=== PATIENT | female | born 1960 | race Hispanic/Latino ===

== ENCOUNTER 2016-12-10 18:44 | Emergency (ER) | payer OTHER ==
[~2016-12-10] VITALS: Ht 160 cm; Wt 39.0 kg
[2016-12-10] MEDS ORDERED: TRAVEL SICKNESS25 MG PO (19:23)
[2016-12-10] MEDS ORDERED: MULTIVITAMINS1 EAC9 PO (19:24)
[2016-12-10] MEDS ORDERED: FOLIC ACID1 M1 PO (19:24)
[2016-12-10] MEDS ORDERED: CITALOPRAM HBR40 MG PO (19:25)
[2016-12-10] MEDS ORDERED: ZOLPIDEM TARTRA10 M1 PO (19:26)
[2016-12-10] MEDS ORDERED: SIMVASTATIN20 M2 PO (19:26)
[2016-12-10] MEDS ORDERED: SENNA-S TABLET1 EACH PO (19:27)
[2016-12-10] MEDS ORDERED: SYNTHROID300 MCG PO (19:27)
[2016-12-10] MEDS ORDERED: OXYCODONE-ACET1 EAC1 PO (19:28)
[2016-12-10] MEDS ORDERED: ASPIRIN EC81 M1 PO (19:29)
[2016-12-10] MEDS ORDERED: OXYCODONE HCL15 M1 (19:30)
[2016-12-10] MEDS ORDERED: MORPHINE S20 MG/5 ML (19:31)
--- NOTE | 2016-12-10 19:36 | ED GENERAL ADULT ---
History of Present Illness General Chief Complaint: General Adult Stated Complaint: CLOGGED PEG TUBE Source: family, EMS Exam Limitations: clinical condition Vital Signs & Intake/Output Vital Signs & Intake/Output Vital Signs Date Time Temp Pulse Resp B/P Pulse O2 O2 Flow FiO2 Ox Delivery Rate 12/10 1903 Trach Mask 12/10 1856 99.3 102 16 105/68 99 Room Air Allergies Coded Allergies: No Known Allergies (12/10/16) Reconcile Medications Aspirin (Ecotrin*) 81 MG TABLET.DR 1 TAB PO DAILY HEART/BLOOD (Reported) Citalopram Hydrobromide (Citalopram HBr) 40 MG TABLET 1 TAB PO DAILY MENTAL HEALTH (Reported) Folic Acid 1 MG TABLET 1 TAB PO DAILY SUPPLEMENT (Reported) Levothyroxine Sodium (Synthroid) 300 MCG TABLET 1 TAB PO DAILY THYROID ( Reported) Meclizine HCl (Travel Sickness) 25 MG TAB.CHEW 1 TAB PO TID VERTIGO (Reported ) Morphine Sulfate (Unknown Strength) SOLUTION (Unknown Dose) UNKNOWN (Reported ) Multiple Vitamin (Multivitamins) 1 EACH TABLET 1 TAB PO DAILY SUPPLEMENT ( Reported) Oxycodone HCl (Unknown Strength) TABLET (Unknown Dose) UNKNOWN (Reported) Oxycodone HCl/Acetaminophen (Oxycodone-Acetaminophen 10-325) 10 MG-325 MG TABLET 1 TAB PO 4XDAILY PAIN (Reported) Sennosides/Docusate Sodium (Senna-S Tablet) 8.6 MG-50 MG TABLET 1 TAB PO PRN CONSTIPATION (Reported) Simvastatin (Simvastatin*) 20 MG TABLET 1 TAB PO QPM CHOLESTEROL (Reported) Zolpidem Tartrate 10 MG TABLET 1 TAB PO QPM SLEEP (Reported) Triage Note: PT TO ROOM7 BIB FROM HOME FOR C/O CLOGGED PEG TUBE. PEG TUBE WAS WORKING LAST TIME AROUND 3PM. PT OFFERS NO COMPLAINTS AT THIS TIME. VSS. HX OF THROAT CA WITH METASTASIS. Triage Nurses Notes Reviewed? yes HPI: Patient has throat cancer and has a PEG tube. Patient is here visiting her daughter. Tonight the PEG tube became clogged. Daughter brought her patient in for evaluation. Patient has no other complaints. There are no fevers or chills. Past History Travel History Traveled to [place] past 21 day No Medical History Any Pertinent Medical History? see below for history Gastrointestinal: PEG TUBE Endocrine: hypothyroidism Cancer(s): THROAT CA W/METS Surgical History Surgical History: PEG, TRACH Psychosocial History What is your primary language Croatian Tobacco Use: Never used ETOH Use: denies use Illicit Drug Use: denies illicit drug use Family History Hx Contributory? No Review of Systems Review of Systems Constitutional: Reports: no symptoms. Respiratory: Reports: no symptoms. Cardiovascular: Reports: no symptoms. GI: Reports: see HPI. Neurological/Psychological: Reports: no symptoms. Physical Exam Physical Exam General Appearance: well developed/nourished, awake Eyes: Bilateral: PERRL, EOMI. Respiratory: normal breath sounds, chest non-tender, no respiratory distress, lungs clear Gastrointestinal: normal bowel sounds, soft, non-tender Skin: intact, normal color, warm/dry Core Measures ACS in differential dx? No CVA/TIA Diagnosis: No Severe Sepsis Present: No Septic Shock Present: No Progress Differential Diagnoses I considered the following diagnoses in my evaluation of the patient: [CLOGGED PEG TUBE] Plan of Care: DECLOG Initial ED EKG: none Comments: PEG tube declogged in the ER. Departure Departure Disposition: HOME OR SELF CARE Condition: Stable Clinical Impression Primary Impression: Feeding tube blocked Referrals: UNKNOWN (PCP/Family) Additional Instructions: FOLLOW UP WITH HER DOCTOR IN [place] RETURN IF SYMPTOMS WORSEN OR FOR ANY CONCERNS Departure Forms: Customer Survey General Discharge Information Critical Care Note Critical Care Note Critical Care Time: non-applicable
[2016-12-10 20:24] VITALS: BP 110/66
== END 2016-12-10 20:25 ==
LOC: ERH 18:44
DX: K94.29 Other complications of gastrostomy (principal)

== ENCOUNTER 2017-01-14 21:28 | Emergency (ER) | payer OTHER ==
[~2017-01-14] VITALS: Ht 162.6 cm; Wt 34.5 kg
[~2017-01-14 21:28] MED LIST: ASPIRIN EC81 M1 PO; CITALOPRAM HBR40 MG PO; FOLIC ACID1 M1 PO; MORPHINE S20 MG/5 ML; MULTIVITAMINS1 EAC9 PO; OXYCODONE HCL15 M1; OXYCODONE-ACET1 EAC1 PO; SENNA-S TABLET1 EACH PO; SIMVASTATIN20 M2 PO; SYNTHROID300 MCG PO; TRAVEL SICKNESS25 MG PO; ZOLPIDEM TARTRA10 M1 PO
[2017-01-14 21:30] VITALS: BP 78/53
--- NOTE | 2017-01-14 21:51 | ED GI/GU/ABDOMINAL COMPLAINT ---
History of Present Illness General Chief Complaint: General Adult Stated Complaint: CONSTIPATION Source: patient, family Exam Limitations: no limitations Vital Signs & Intake/Output Vital Signs & Intake/Output Vital Signs Date Time Temp Pulse Resp B/P Pulse O2 O2 Flow FiO2 Ox Delivery Rate 01/140 98.8 130 22 78/53 82 Room Air Allergies Coded Allergies: No Known Allergies (12/10/16) Reconcile Medications Aspirin (Ecotrin*) 81 MG TABLET.DR 1 TAB PO DAILY HEART/BLOOD (Reported) Citalopram Hydrobromide (Citalopram HBr) 40 MG TABLET 1 TAB PO DAILY MENTAL HEALTH (Reported) Folic Acid 1 MG TABLET 1 TAB PO DAILY SUPPLEMENT (Reported) Levothyroxine Sodium (Synthroid) 300 MCG TABLET 1 TAB PO DAILY THYROID ( Reported) Meclizine HCl (Travel Sickness) 25 MG TAB.CHEW 1 TAB PO TID VERTIGO (Reported ) Morphine Sulfate (Unknown Strength) SOLUTION (Unknown Dose) UNKNOWN (Reported ) Multiple Vitamin (Multivitamins) 1 EACH TABLET 1 TAB PO DAILY SUPPLEMENT ( Reported) Oxycodone HCl (Unknown Strength) TABLET (Unknown Dose) UNKNOWN (Reported) Oxycodone HCl/Acetaminophen (Oxycodone-Acetaminophen 10-325) 10 MG-325 MG TABLET 1 TAB PO 4XDAILY PAIN (Reported) Polyethylene Glycol 3350 (Miralax) 17 GRAM/DOSE POWDER 17 GM PO BID PRN CONSTIPATION mix with water, juice, soda, coffee or tea Sennosides/Docusate Sodium (Senna-S Tablet) 8.6 MG-50 MG TABLET 1 TAB PO PRN CONSTIPATION (Reported) Simvastatin (Simvastatin*) 20 MG TABLET 1 TAB PO QPM CHOLESTEROL (Reported) Zolpidem Tartrate 10 MG TABLET 1 TAB PO QPM SLEEP (Reported) Triage Note: 56 YEAR OLD FEMALE WITH HISTORY OF THROAT CANCER THAT SPREAD EVERY WHERE PER DAUGHTER, PT IS NON VERBAL AND WRITES WHAT SHE NEEDS. PT HAS PEG TUBE AND HAD A TRACHE THAT WAS REMOVED, PT IS O2 DEPENDENT AND ARRIVED ON RA , O2 SAT 82 %. PT COMES TO ER FOR CONSTIPATION, PTS PMD IS IN THE [place], PT STILL GOES FOR TREATMENTS. PER DAUGHTER DOCTORS WANT HER TO GO TO HOSPICE BUT PT DOES NOT WANT TO. Triage Nurses Notes Reviewed? yes ? n Is pt currently ? No Onset: Gradual Duration: week(s):, waxing and waning Timing: recent history Quality/Severity: cramping Location: generalized abdomen Radiation: no radiation Prior Abdominal Problems: similar symptoms Modifying Factors: Worsens With: defecating. 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 Family states that she has had difficulty moving her bowels for the past several weeks. "Small balls of stool, out, "says her daughter. This evening, the patient pulled several balls of stool out by herself. She comes this evening with rectal pressure and difficulty stooling. She has no nausea vomiting fever chills dysuria chest pain or shortness of breath. She is otherwise well. Past History Travel History Traveled to [place] past 21 day No Medical History Any Pertinent Medical History? 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 No Review of Systems Review of Systems Constitutional: Reports: no symptoms. EENTM: Reports: no symptoms. Respiratory: Reports: no symptoms. Cardiovascular: Reports: no symptoms. GI: Reports: no symptoms. Genitourinary: Reports: no symptoms. Musculoskeletal: Reports: no symptoms. Skin: Reports: no symptoms. Neurological/Psychological: Reports: no symptoms. Hematologic/Endocrine: Reports: no symptoms. Immunologic/Allergic: Reports: no symptoms. All Other Systems: Reviewed and Negative Physical Exam Physical Exam General Appearance: well developed/nourished, no apparent distress Head: atraumatic, normal appearance Eyes: Bilateral: normal appearance. Ears, Nose, Throat, Mouth: hearing grossly normal, ostomy intact Neck: normal inspection, supple, full range of motion Respiratory: normal breath sounds, chest non-tender, no respiratory distress, quiet respiration, lungs clear Cardiovascular: regular rate/rhythm Gastrointestinal: normal bowel sounds, soft, non-tender, no organomegaly Rectal: rectal vault filled with firm, dry stool Back: normal inspection, cachexia, poor subcutaneous fat Extremities: normal range of motion Neurologic/Psych: no motor/sensory deficits, awake, alert, oriented x 3 Skin: intact, normal color, warm/dry Core Measures ACS in differential dx? No Severe Sepsis Present: No Septic Shock Present: No Progress Differential Diagnosis: constipation vs other. Plan of Care: procedure: rectal disimpaction. extracted copious amount of stool from rectal vault... pt tolerated the procedure well. Initial ED EKG: none Departure Departure Disposition: HOME OR SELF CARE Condition: Stable Clinical Impression Primary Impression: Constipation Referrals: UNKNOWN (PCP/Family) Departure Forms: Customer Survey General Discharge Information Prescriptions: Current Visit Scripts Polyethylene Glycol 3350 (Miralax) 17 GM PO BID PRN CONSTIPATION #255 GM Ref 1 mix with water, juice, soda, coffee or tea Comments pt rectally disimpacted by ED MD... Abundant amount of firm stool extracted from rectum. Initial 02 sat was on room air... she is on 35% trach mask... when on 35% trach mask, she is at 99%. Discussed at length goals of care... Patient feels better after disimpaction. She and family feel comfortable going home. If not better, she will return to the ED. Wrote for miralax.
[2017-01-14] MEDS ORDERED: MIRALAX119 GM PO (22:02)
== END 2017-01-14 22:19 ==
LOC: ERH 21:28
DX: K59.00 Constipation, unspecified (principal)

== ENCOUNTER 2017-01-19 13:19 | Emergency (ER) | payer OTHER ==
[~2017-01-19] VITALS: Ht 160 cm; Wt 34.5 kg
[~2017-01-19 13:19] MED LIST changes: +MIRALAX119 GM PO
[2017-01-19 13:27] VITALS: BP 101/63
--- NOTE | 2017-01-19 13:28 | ED GI/GU/ABDOMINAL COMPLAINT ---
History of Present Illness General Chief Complaint: General Adult Stated Complaint: CLOGGED G-TUBE Vital Signs & Intake/Output Vital Signs & Intake/Output Vital Signs Date Time Temp Pulse Resp B/P Pulse O2 O2 Flow FiO2 Ox Delivery Rate 01/19 1354 97 Trach Mask 35% 01/19 1327 97.4 114 20 101/63 90 Room Air Allergies Coded Allergies: No Known Allergies (12/10/16) Reconcile Medications Aspirin (Ecotrin*) 81 MG TABLET.DR 1 TAB PO DAILY HEART/BLOOD (Reported) Citalopram Hydrobromide (Citalopram HBr) 40 MG TABLET 1 TAB PO DAILY MENTAL HEALTH (Reported) Folic Acid 1 MG TABLET 1 TAB PO DAILY SUPPLEMENT (Reported) Levothyroxine Sodium (Synthroid) 300 MCG TABLET 1 TAB PO DAILY THYROID ( Reported) Meclizine HCl (Travel Sickness) 25 MG TAB.CHEW 1 TAB PO TID VERTIGO (Reported ) Morphine Sulfate (Unknown Strength) SOLUTION (Unknown Dose) UNKNOWN (Reported ) Multiple Vitamin (Multivitamins) 1 EACH TABLET 1 TAB PO DAILY SUPPLEMENT ( Reported) Oxycodone HCl (Unknown Strength) TABLET (Unknown Dose) UNKNOWN (Reported) Oxycodone HCl/Acetaminophen (Oxycodone-Acetaminophen 10-325) 10 MG-325 MG TABLET 1 TAB PO 4XDAILY PAIN (Reported) Polyethylene Glycol 3350 (Miralax) 17 GRAM/DOSE POWDER 17 GM PO BID PRN CONSTIPATION mix with water, juice, soda, coffee or tea Sennosides/Docusate Sodium (Senna-S Tablet) 8.6 MG-50 MG TABLET 1 TAB PO PRN CONSTIPATION (Reported) Simvastatin (Simvastatin*) 20 MG TABLET 1 TAB PO QPM CHOLESTEROL (Reported) Zolpidem Tartrate 10 MG TABLET 1 TAB PO QPM SLEEP (Reported) Triage Note: PRESENTS TO ED FOR EVALUATION OF CLOGGED G-TUBE PER DAUGHTER. PT IS NON VERBAL. 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
--- NOTE | 2017-01-19 14:06 | ED GI/GU/ABDOMINAL COMPLAINT ---
History of Present Illness General Chief Complaint: General Adult Stated Complaint: CLOGGED G-TUBE Source: family, old records Exam Limitations: unable to give history, language barrier Vital Signs & Intake/Output Vital Signs & Intake/Output Vital Signs Date Time Temp Pulse Resp B/P Pulse O2 O2 Flow FiO2 Ox Delivery Rate 01/19 1354 97 Trach Mask 35% 01/19 1327 97.4 114 20 101/63 90 Room Air Allergies Coded Allergies: No Known Allergies (12/10/16) Reconcile Medications Aspirin (Ecotrin*) 81 MG TABLET.DR 1 TAB PO DAILY HEART/BLOOD (Reported) Citalopram Hydrobromide (Citalopram HBr) 40 MG TABLET 1 TAB PO DAILY MENTAL HEALTH (Reported) Folic Acid 1 MG TABLET 1 TAB PO DAILY SUPPLEMENT (Reported) Levothyroxine Sodium (Synthroid) 300 MCG TABLET 1 TAB PO DAILY THYROID ( Reported) Meclizine HCl (Travel Sickness) 25 MG TAB.CHEW 1 TAB PO TID VERTIGO (Reported ) Morphine Sulfate (Unknown Strength) SOLUTION (Unknown Dose) UNKNOWN (Reported ) Multiple Vitamin (Multivitamins) 1 EACH TABLET 1 TAB PO DAILY SUPPLEMENT ( Reported) Oxycodone HCl (Unknown Strength) TABLET (Unknown Dose) UNKNOWN (Reported) Oxycodone HCl/Acetaminophen (Oxycodone-Acetaminophen 10-325) 10 MG-325 MG TABLET 1 TAB PO 4XDAILY PAIN (Reported) Polyethylene Glycol 3350 (Miralax) 17 GRAM/DOSE POWDER 17 GM PO BID PRN CONSTIPATION mix with water, juice, soda, coffee or tea Sennosides/Docusate Sodium (Senna-S Tablet) 8.6 MG-50 MG TABLET 1 TAB PO PRN CONSTIPATION (Reported) Simvastatin (Simvastatin*) 20 MG TABLET 1 TAB PO QPM CHOLESTEROL (Reported) Zolpidem Tartrate 10 MG TABLET 1 TAB PO QPM SLEEP (Reported) Triage Note: PRESENTS TO ED FOR EVALUATION OF CLOGGED G-TUBE PER DAUGHTER. PT IS NON VERBAL. Triage Nurses Notes Reviewed? yes ? N Is pt currently ? No HPI: This is a 56-year-old female with past medical history significant for throat cancer with metastasis currently treated with unknown treatment regimen in [place]. Pt has history of trach which is now removed. However, patient is O2 dependent and nonverbal. She comes in with chief complaint of a PEG tube. Patient brought in by daughter who is bedside and provides the entire history. Per daughter, she thinks that patient's medications were in adequately crushed when they were administered this AM. After medication administration, she was unable to flush the tube adequately. Of note, on 12/10/2016, patient was seen for the same complaint. At that time PEG tube was successfully unclogged with the metal brush and syringe. (SARA WATT MD) Past History Travel History Traveled to [place] past 21 day No Medical History Any Pertinent Medical History? see below for history Neurological: NONE EENT: NONE Cardiovascular: NONE Respiratory: NONE Gastrointestinal: PEG TUBE Hepatic: NONE Renal: NONE Musculoskeletal: NONE Psychiatric: NONE Endocrine: hypothyroidism Blood Disorders: NONE Cancer(s): THROAT CA W/METS VP HUMAN RESOURCES/Reproductive: NONE Surgical History Surgical History: PEG, TRACH Psychosocial History What is your primary language Kyrgyz Tobacco Use: Quit >30 days ago Family History Hx Contributory? No (SARA WATT MD) Review of Systems Review of Systems Constitutional: Reports: no symptoms. Comments Pt. nonverbal but denies any pain (SARA WATT MD) Physical Exam Physical Exam General Appearance: alert, awake, comfortable, thin Head: atraumatic Eyes: Bilateral: normal appearance, PERRL, EOMI. Neck: abnormal alignment, evidence of previous trach. Respiratory: crackles Cardiovascular: regular rate/rhythm Gastrointestinal: soft, non-tender, Peg Tube in place. Extremities: normal range of motion Core Measures ACS in differential dx? No Severe Sepsis Present: No Septic Shock Present: No (SARA WATT MD) Physical Exam Ears, Nose, Throat, Mouth: hearing grossly normal Peripheral Pulses: 4+ carotid (R), 4+ carotid (L) Neurologic/Psych: awake, alert Skin: intact, normal color (JORDON MEJIA MD) Progress Differential Diagnosis: Clogged PEG tube Plan of Care: Recent comes in with a clogged PEG tube. Incidentally during workup, she was found to have saturations between low 70s and high 80s. Per daughter in the room her mom is usually on humidified oxygen via her previous trach access. Respiratory is on board. Issues: For similar chief complaint previously. At that time metal brush and syringes with 400 mL of fluid to flush the tube worked to unclog the tube. Will attempt same maneuver at this time. PEG tube successfully unclogged. Pt ready to go home. Initial ED EKG: none (SARA WATT MD) Departure Departure Disposition: HOME OR SELF CARE Condition: Stable Clinical Impression Primary Impression: PEG tube malfunction Referrals: UNKNOWN (PCP/Family) Departure Forms: Customer Survey General Discharge Information Comments Please crush all measurements prior to administration we are PEG tube. If tube stops working the return to ED. (SARA WATT MD) Resident Co-Sign Statement Statement: ED Attending supervision documentation- x I saw and evaluated the patient. I have also reviewed all the pertinent lab results and diagnostic results. I agree with the findings and the plan of care as documented in the Resident's documentation. [] I have reviewed the ED Record and agree with the Resident's documentation. [] Additions or exceptions (if any) to the Resident's note and plan are summarized below: [] (JACKIE MCLEOD,JORDON)
== END 2017-01-19 14:14 ==
LOC: ERH 13:19
DX: K94.23 Gastrostomy malfunction (principal)
CPT/HCPCS: 1342

== ENCOUNTER 2017-01-19 14:27 | Emergency (ER) | payer OTHER ==
[~2017-01-19] VITALS: Ht 170.2 cm; Wt 40.8 kg
[2017-01-19 14:31] VITALS: BP 80/52
--- NOTE | 2017-01-19 14:35 | ED GENERAL ADULT ---
History of Present Illness General Chief Complaint: Dyspnea (COPD, CHF, Other) Stated Complaint: SOB Source: patient, family, old records Exam Limitations: unable to give history, language barrier Vital Signs & Intake/Output Vital Signs & Intake/Output Vital Signs Date Time Temp Pulse Resp B/P Pulse O2 O2 Flow FiO2 Ox Delivery Rate 01/19 1449 99 Trach Mask 3.0L 01/19 1431 97.2 103 20 80/52 94 Room Air Allergies Coded Allergies: No Known Allergies (12/10/16) Reconcile Medications Aspirin (Ecotrin*) 81 MG TABLET.DR 1 TAB PO DAILY HEART/BLOOD (Reported) Citalopram Hydrobromide (Citalopram HBr) 40 MG TABLET 1 TAB PO DAILY MENTAL HEALTH (Reported) Folic Acid 1 MG TABLET 1 TAB PO DAILY SUPPLEMENT (Reported) Levothyroxine Sodium (Synthroid) 300 MCG TABLET 1 TAB PO DAILY THYROID ( Reported) Meclizine HCl (Travel Sickness) 25 MG TAB.CHEW 1 TAB PO TID VERTIGO (Reported ) Morphine Sulfate (Unknown Strength) SOLUTION (Unknown Dose) UNKNOWN (Reported ) Multiple Vitamin (Multivitamins) 1 EACH TABLET 1 TAB PO DAILY SUPPLEMENT ( Reported) Oxycodone HCl (Unknown Strength) TABLET (Unknown Dose) UNKNOWN (Reported) Oxycodone HCl/Acetaminophen (Oxycodone-Acetaminophen 10-325) 10 MG-325 MG TABLET 1 TAB PO 4XDAILY PAIN (Reported) Polyethylene Glycol 3350 (Miralax) 17 GRAM/DOSE POWDER 17 GM PO BID PRN CONSTIPATION mix with water, juice, soda, coffee or tea Sennosides/Docusate Sodium (Senna-S Tablet) 8.6 MG-50 MG TABLET 1 TAB PO PRN CONSTIPATION (Reported) Simvastatin (Simvastatin*) 20 MG TABLET 1 TAB PO QPM CHOLESTEROL (Reported) Zolpidem Tartrate 10 MG TABLET 1 TAB PO QPM SLEEP (Reported) HPI: This is a 6-year-old female past medical history of throat cancer with metastasis. Daughter is not sure of the current treatment regimen, however she seeks all her treatment in [place]. Patient is nonverbal at baseline and O2 dependent. She came in earlier this afternoon for chief complaint of a clogged PEG tube. The problem was resolved, and patient left. However she quickly returned secondary to shortness of breath. Of note, she is O2 dependent at home but daughter brought her in without oxygen tank or supplemental oxygen source. (SARA WATT MD) Triage Nurses Notes Reviewed? yes (JORDON MEJIA MD) Past History Travel History Traveled to [place] past 21 day No Medical History Any Pertinent Medical History? 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 No (SARA WATT MD) Review of Systems Review of Systems Constitutional: Reports: no symptoms. Comments pt nonverbal. Denies any complaints other than SOB. (SARA WATT MD) Review of Systems Respiratory: Reports: see HPI, short of breath. (JORDON MEJIA MD) Physical Exam Physical Exam General Appearance: awake, comfortable, mild distress, thin Head: atraumatic Eyes: Bilateral: normal appearance, PERRL, EOMI. Ears, Nose, Throat: pt has evidence of previous trach. Neck: limited range of motion, trachea deviated. Evidence of previous trach placement Respiratory: decreased breath sounds, crackles Cardiovascular: regular rate/rhythm Gastrointestinal: normal bowel sounds, soft, PEG in place Extremities: normal inspection Core Measures ACS in differential dx? No CVA/TIA Diagnosis: No Severe Sepsis Present: No Septic Shock Present: No (SARA WATT MD) Physical Exam Peripheral Pulses: 4+ carotid (R), 4+ carotid (L) (JORDON MEJIA MD) Progress Differential Diagnoses I considered the following diagnoses in my evaluation of the patient: [increased secretions, lack of o2] Plan of Care: Patient is working with respiratory. We will write O2 via trach mask. We will arrange for ambulance to safely drop off patient at home with continue his oxygen as the daughter is unable to bring the tank. Initial ED EKG: none (SARA WATT MD) Differential Diagnoses I considered the following diagnoses in my evaluation of the patient: (JORDON MEJIA MD) Departure Departure Time of Disposition: 1447 Disposition: HOME OR SELF CARE Condition: Stable Clinical Impression Primary Impression: Shortness of breath Referrals: UNKNOWN Departure Forms: Customer Survey General Discharge Information (ALYSA MCLEOD,SARA) Resident Co-Sign Statement Statement: ED Attending supervision documentation- x I saw and evaluated the patient. I have also reviewed all the pertinent lab results and diagnostic results. I agree with the findings and the plan of care as documented in the Resident's documentation. Does not have supplemental oxygen for transportation home. Ambulance transfer arranged. [] I have reviewed the ED Record and agree with the Resident's documentation. [] Additions or exceptions (if any) to the Resident's note and plan are summarized below: [] (JORDON MEJIA MD) Critical Care Note Critical Care Note Critical Care Time: non-applicable (JORDON MEJIA MD)
== END 2017-01-19 15:30 ==
LOC: ERH 14:27
DX: R06.02 Shortness of breath (principal)